=== PATIENT | male | born 1960 | race Caucasian/White ===

== ENCOUNTER 2018-09-02 18:41 | Inpatient (IN) ==
[2018-09-02 19:16] LABS: Basophils # 0.1 10*3/uL (0.0-0.2); Basophils % 0.8 % (0.0-0.8); Eosinophils # 0.2 10*3/uL (0.0-0.87); Eosinophils % 1.3 % (0.00-10.9); Hematocrit 41.8 VOL% (42.0-52.0); Hemoglobin 13.4 GM/DL (14.0-18.0); Immature Granulocytes % 0.4 %; Immature Granulocytes Absolute 0.05 #; Lymphocytes # 1.2 10*3/uL (1.4-4.0); Lymphocytes % 9.1 % (21.2-54.2); Mean Corpuscular HGB Conc 32.1 GM/DL (32-36); Mean Corpuscular Hemoglobin 28 PG (27-34); Mean Corpuscular Volume 86.5 FL (87-102); Mean Platelet Volume 9.8 FL (9.6-12.0); Monocytes # 0.8 10*3/uL (0.11-0.8); Monocytes % 6.7 % (1.7-12.7); Neutrophils # 10.3 10*3/uL (1.4-7.4); Neutrophils % 81.7 % (38.7-73.9); Platelet Count 321 T/CUMM (130-400); Red Blood Count 4.83 MC/CUMM (3.8-5.5); Red Cell Distribution Width 14.9 % (9.3-17.3); White Blood Count 12.6 T/CUMM (4-12)
[2018-09-02 19:25] LABS: INR 1.2; PT Patient Result 12.6 SECS
[2018-09-02 19:40] LABS: Alanine Aminotransferase 22 U/L (16-61); Albumin 3.1 G/DL (3.4-5.0); Alkaline Phosphatase 208 U/L (45-117); Aspartate Amino Transferase 24 U/L (0-37); Blood Urea Nitrogen 30 MG/DL (7-18); Calcium 8.7 MG/DL (8.5-10.1); Glucose 81 MG/DL (74-106); Osmolality,Calculated 268.5 MOS/KG (273-304); Potassium 3.5 MMOL/L (3.5-5.1); Sodium 132 MMOL/L (136-145); Total Protein 7.2 G/DL (6.4-8.3)
[2018-09-02 19:41] LABS: Troponin I 0.052 NG/ML (0.00-0.045)
[2018-09-02] MEDS ORDERED: FUROSEMIDE 40 MG/4 ML VIAL IV STA (19:44)
[2018-09-02] MEDS ORDERED: MORPHINE 4 MG/1 ML VIAL IV STA (21:25)
[2018-09-02] MEDS ORDERED: MORPHINE 4 MG/1 ML VIAL ONE (21:27)
[2018-09-02] MEDS ORDERED: ZALEPLON 5 MG CAPSULE PO PRN (22:02)
[2018-09-02] MEDS ORDERED: ALBUTEROL 2.5 MG/3 ML NEB RESP TX PRN (22:02)
[2018-09-02] MEDS ORDERED: ONDANSETRON 4 MG/2 ML VIAL IV PRN (22:02)
[2018-09-02] MEDS ORDERED: ACETAMINOPHEN 325 MG TABLET PO PRN (22:02)
[2018-09-02] MEDS ORDERED: MORPHINE 4 MG/1 ML VIAL IV PRN (22:02)
[2018-09-02] MEDS ORDERED: DOCUSATE SODIUM 100 MG CAPSULE PO PRN (22:02)
[2018-09-02] MEDS ORDERED: ALBUTEROL/IPRATROPIUM 3 ML NEB RESP TX PRN (22:02)
[2018-09-02 23:49] LABS: Apearance,Urine CLEAR (Clear); Bilirubin,Urine Negative (Negative); Blood, Urine Negative (Negative); Glucose,Urine (UA) Negative (Negative); Hyaline Casts,Urine 1 /LPF (0-3); Ketones,Urine Negative (Negative); Nitrite,Urine Negative (Negative); Protein,Urine Negative; RBC,Urine 1 /HPF (0-4); Urine Color Yellow (Yellow); Urine Specific Gravity 1.008 (1.001-1.035); Urine Urobilinogen < 2.0 EU/DL (0.2-1.0)
[2018-09-03] MEDS ORDERED: LORazepam 2 MG/1 ML VIAL ONE (00:31)
[2018-09-03] MEDS: ENOXAPARIN 40 MG/0.4 ML SYRINGE SUBCUT SCH (00:35)
[2018-09-03 04:46] LABS: Basophils # 0.1 10*3/uL (0.0-0.2); Basophils % 0.9 % (0.0-0.8); Eosinophils # 0.3 10*3/uL (0.0-0.87); Hematocrit 40.6 VOL% (42.0-52.0); Immature Granulocytes % 0.3 %; Immature Granulocytes Absolute 0.03 #; Lymphocytes # 1.2 10*3/uL (1.4-4.0); Lymphocytes % 13.2 % (21.2-54.2); Mean Corpuscular Hemoglobin 28 PG (27-34); Mean Platelet Volume 9.6 FL (9.6-12.0); Monocytes # 0.8 10*3/uL (0.11-0.8); Monocytes % 9.1 % (1.7-12.7); Neutrophils # 6.5 10*3/uL (1.4-7.4); Neutrophils % 73.5 % (38.7-73.9); Platelet Count 264 T/CUMM (130-400); Red Blood Count 4.72 MC/CUMM (3.8-5.5); White Blood Count 8.8 T/CUMM (4-12)
[2018-09-03 05:04] LABS: Calcium 8.2 MG/DL (8.5-10.1); Osmolality,Calculated 275.1 MOS/KG (273-304); Potassium 2.8 MMOL/L (3.5-5.1); Risk Ratio 2.58; VLDL CHOLESTEROL 12.8 MG/DL
[2018-09-03] MEDS: POTASSIUM CHLORIDE 20 MEQ TABLET PO SCH ×4 (08:05→18:49)
[2018-09-03] MEDS: FUROSEMIDE 40 MG/4 ML VIAL IV SCH ×2 (08:05→15:05)
[2018-09-03] MEDS ORDERED: ATORVASTATIN 10 MG TABLET PO SCH (09:00)
[2018-09-03] MEDS ORDERED: CARVEDILOL 6.25 MG TABLET PO SCH (09:00)
[2018-09-03] MEDS: ASPIRIN EC 81 MG TABLET PO SCH (10:07)
[2018-09-03] MEDS ORDERED: PNEUMOCOCCAL VACCINE (23 VALENT) 0.5 ML VIAL IM ONE (11:37)
[2018-09-03] MEDS ORDERED: INFLUENZA VIRUS VACCINE 0.5 ML SYRINGE IM ONE (11:37)
[2018-09-03] MEDS: NITROGLYCERIN 2% OINT 1 INCH/GM PACK TOP SCH ×2 (11:46→17:44)
[2018-09-03] MEDS: CARVEDILOL 12.5 MG TABLET PO SCH (20:47)
[2018-09-03] MEDS: GABAPENTIN 600 MG TABLET PO SCH (20:48)
[2018-09-04] MEDS: NITROGLYCERIN 2% OINT 1 INCH/GM PACK TOP SCH ×4 (01:06→17:00)
[2018-09-04] MEDS: ENOXAPARIN 40 MG/0.4 ML SYRINGE SUBCUT SCH (01:06)
[2018-09-04 05:54] LABS: Basophils # 0.1 10*3/uL (0.0-0.2); Eosinophils # 0.2 10*3/uL (0.0-0.87); Eosinophils % 3.6 % (0.00-10.9); Hematocrit 40.7 VOL% (42.0-52.0); Hemoglobin 13.2 GM/DL (14.0-18.0); Immature Granulocytes % 0.3 %; Immature Granulocytes Absolute 0.02 #; Lymphocytes % 15.8 % (21.2-54.2); Mean Corpuscular HGB Conc 32.4 GM/DL (32-36); Mean Corpuscular Hemoglobin 28 PG (27-34); Mean Corpuscular Volume 86.4 FL (87-102); Mean Platelet Volume 9.8 FL (9.6-12.0); Monocytes # 0.5 10*3/uL (0.11-0.8); Monocytes % 8.8 % (1.7-12.7); Neutrophils # 4.3 10*3/uL (1.4-7.4); Neutrophils % 70.5 % (38.7-73.9); Platelet Count 240 T/CUMM (130-400); Red Blood Count 4.71 MC/CUMM (3.8-5.5); White Blood Count 6.1 T/CUMM (4-12)
[2018-09-04 06:09] LABS: Calcium 8.5 MG/DL (8.5-10.1); Osmolality,Calculated 281.5 MOS/KG (273-304); Potassium 3.4 MMOL/L (3.5-5.1)
[2018-09-04] MEDS: FUROSEMIDE 40 MG/4 ML VIAL IV SCH ×2 (09:34→16:23)
[2018-09-04] MEDS: CARVEDILOL 12.5 MG TABLET PO SCH ×2 (09:35→21:02)
[2018-09-04] MEDS: POTASSIUM CHLORIDE 20 MEQ TABLET PO SCH (09:35)
[2018-09-04] MEDS: ASPIRIN EC 81 MG TABLET PO SCH (09:45)
[2018-09-04] MEDS: GABAPENTIN 600 MG TABLET PO SCH (21:02)
[2018-09-05] MEDS: NITROGLYCERIN 2% OINT 1 INCH/GM PACK TOP SCH ×2 (01:49→06:37)
[2018-09-05] MEDS: ENOXAPARIN 40 MG/0.4 ML SYRINGE SUBCUT SCH (01:50)
[2018-09-05 04:28] LABS: Basophils # 0.1 10*3/uL (0.0-0.2); Eosinophils # 0.4 10*3/uL (0.0-0.87); Eosinophils % 8.2 % (0.00-10.9); Hemoglobin 12.9 GM/DL (14.0-18.0); Immature Granulocytes % 0.4 %; Immature Granulocytes Absolute 0.02 #; Lymphocytes # 0.8 10*3/uL (1.4-4.0); Lymphocytes % 16.9 % (21.2-54.2); Mean Corpuscular HGB Conc 31.5 GM/DL (32-36); Mean Corpuscular Hemoglobin 28 PG (27-34); Mean Corpuscular Volume 88.9 FL (87-102); Mean Platelet Volume 10.2 FL (9.6-12.0); Monocytes # 0.6 10*3/uL (0.11-0.8); Monocytes % 11.8 % (1.7-12.7); Neutrophils % 61.7 % (38.7-73.9); Platelet Count 206 T/CUMM (130-400); Red Blood Count 4.61 MC/CUMM (3.8-5.5); Red Cell Distribution Width 15.1 % (9.3-17.3); White Blood Count 4.9 T/CUMM (4-12)
[2018-09-05 05:02] LABS: Calcium 8.3 MG/DL (8.5-10.1); Osmolality,Calculated 286.1 MOS/KG (273-304); Potassium 3.3 MMOL/L (3.5-5.1)
[2018-09-05] MEDS ORDERED: POTASSIUM CHLORIDE 20 MEQ TABLET PO ONE ×2 (07:08→11:00)
[2018-09-05] MEDS: ASPIRIN EC 81 MG TABLET PO SCH (08:36)
[2018-09-05] MEDS: CARVEDILOL 12.5 MG TABLET PO SCH ×3 (08:37→22:31)
[2018-09-05] MEDS: LOSARTAN 25 MG TABLET PO SCH (08:37)
[2018-09-05] MEDS: FUROSEMIDE 40 MG TABLET PO SCH (08:37)
[2018-09-05] MEDS: SPIRONOLACTONE 25 MG TABLET PO SCH (08:37)
[2018-09-05] MEDS: MAGNESIUM OXIDE 400 MG TABLET PO SCH ×2 (08:37→22:31)
[2018-09-05] MEDS: POTASSIUM CHLORIDE 20 MEQ TABLET PO SCH (10:06)
[2018-09-05] MEDS: clonazePAM 0.5 MG TABLET PO PRN ×2 (10:30→19:50)
[2018-09-05] MEDS: GABAPENTIN 600 MG TABLET PO SCH (22:31)
[2018-09-05] MEDS ORDERED: SODIUM CHLORIDE 0.9% 1,000 ML IV SCH (23:55)
[2018-09-06 05:16] LABS: Basophils # 0.1 10*3/uL (0.0-0.2); Basophils % 1.5 % (0.0-0.8); Eosinophils # 0.4 10*3/uL (0.0-0.87); Eosinophils % 7.3 % (0.00-10.9); Hematocrit 41.2 VOL% (42.0-52.0); Immature Granulocytes % 0.4 %; Immature Granulocytes Absolute 0.02 #; Lymphocytes # 1.2 10*3/uL (1.4-4.0); Lymphocytes % 22.3 % (21.2-54.2); Mean Corpuscular HGB Conc 31.6 GM/DL (32-36); Mean Corpuscular Hemoglobin 28 PG (27-34); Mean Corpuscular Volume 88.8 FL (87-102); Mean Platelet Volume 10.6 FL (9.6-12.0); Monocytes # 0.5 10*3/uL (0.11-0.8); Neutrophils # 3.2 10*3/uL (1.4-7.4); Neutrophils % 59.5 % (38.7-73.9); Platelet Count 215 T/CUMM (130-400); Red Blood Count 4.64 MC/CUMM (3.8-5.5); Red Cell Distribution Width 15.4 % (9.3-17.3); White Blood Count 5.3 T/CUMM (4-12)
[2018-09-06 05:32] LABS: Calcium 8.2 MG/DL (8.5-10.1); Osmolality,Calculated 283.3 MOS/KG (273-304); Potassium 3.7 MMOL/L (3.5-5.1)
[2018-09-06 05:38] LABS: INR 1.1; PT Patient Result 12.1 SECS
[2018-09-06] MEDS ORDERED: DIAZEPAM 5 MG TABLET PO ONE (06:30)
[2018-09-06] MEDS ORDERED: diphenhydrAMINE CAP 25 MG CAPSULE PO ONE (06:30)
[2018-09-06] MEDS ORDERED: HEPARIN/NACL 0.9% 2 UNITS/ML 1,000 ML IV ONE (06:50)
[2018-09-06] MEDS ORDERED: LIDOCAINE 1% 20 ML VIAL ONE (06:50)
[2018-09-06] MEDS: ENOXAPARIN 40 MG/0.4 ML SYRINGE SUBCUT SCH ×2 (06:53→21:56)
[2018-09-06] MEDS: LOSARTAN 25 MG TABLET PO SCH (06:53)
[2018-09-06] MEDS: ASPIRIN EC 81 MG TABLET PO SCH (06:53)
[2018-09-06] MEDS: CARVEDILOL 12.5 MG TABLET PO SCH ×2 (06:53→21:16)
[2018-09-06] MEDS ORDERED: NITROGLYCERIN DRIP 50 MG/250 ML BOTTLE IV ONE (07:07)
[2018-09-06] MEDS ORDERED: VERAPAMIL 5 MG/2 ML VIAL ONE (07:07)
[2018-09-06] MEDS ORDERED: fentaNYL 100 MCG/2 ML VIAL ONE (07:13)
[2018-09-06] MEDS ORDERED: MIDAZOLAM 2 MG/2 ML VIAL ONE (07:13)
[2018-09-06] MEDS ORDERED: ENOXAPARIN 60 MG/0.6 ML SYRINGE ONE (07:15)
[2018-09-06] MEDS ORDERED: DEXTROSE 50% 25 GM/50 ML VIAL IV PRN (07:31)
[2018-09-06] MEDS ORDERED: GLUCAGON 1 MG VIAL IM PRN (07:31)
[2018-09-06] MEDS: clonazePAM 0.5 MG TABLET PO PRN ×2 (10:51→21:29)
[2018-09-06] MEDS: POTASSIUM CHLORIDE 20 MEQ TABLET PO SCH (10:52)
[2018-09-06] MEDS: FUROSEMIDE 40 MG TABLET PO SCH (10:52)
[2018-09-06] MEDS: SPIRONOLACTONE 25 MG TABLET PO SCH (10:52)
[2018-09-06] MEDS: MAGNESIUM OXIDE 400 MG TABLET PO SCH ×2 (10:52→21:16)
[2018-09-06] MEDS ORDERED: INSULIN REGULAR 100 UNIT/ML SUBCUT SCH (11:30)
[2018-09-06] MEDS ORDERED: guaiFENesin 200 MG/10 ML UDCUP PO PRN (11:44)
[2018-09-06] MEDS ORDERED: SODIUM CHLORIDE 0.9% 1,000 ML IV SCH (14:00)
[2018-09-06] MEDS: CHLORHEXIDINE 4% SOLN 118 ML BOTTLE TOP SCH ×2 (15:42→21:16)
[2018-09-06] MEDS ORDERED: ATORVASTATIN 40 MG TABLET PO SCH (21:00)
[2018-09-06] MEDS: CHLORHEXIDINE 0.12% ORAL RINSE 60 ML BOTTLE SWISH/SPIT SCH (21:17)
[2018-09-06] MEDS: GABAPENTIN 600 MG TABLET PO SCH (21:55)
[2018-09-07] MEDS ORDERED: CEFUROXIME INJ 1,500 MG in SYRINGE 1 EACH IV ONE (03:00)
[2018-09-07] MEDS ORDERED: VANCOMYCIN INJ 1,500 MG in SODIUM CHLORIDE 0.9% 500 ML IV ONE (03:00)
[2018-09-07] MEDS ORDERED: FAMOTIDINE 20 MG TABLET PO ONE (05:00)
[2018-09-07] MEDS ORDERED: PAPAVERINE 60 MG/2 ML VIAL ONE (05:21)
[2018-09-07] MEDS ORDERED: VANCOMYCIN 1,000 MG VIAL ONE ×4 (05:21→08:23)
[2018-09-07] MEDS ORDERED: TISSUE ADHESIVE 1 EACH APPLICATOR TOP ONE (05:22)
[2018-09-07] MEDS ORDERED: SUFentanil 250 MCG/5 ML AMP ONE (05:23)
[2018-09-07] MEDS ORDERED: MIDAZOLAM 10 MG/2 ML VIAL ONE (05:23)
[2018-09-07] MEDS ORDERED: HEPARIN/NACL 0.9% 2 UNITS/ML 500 ML IV ONE (05:23)
[2018-09-07 05:35] LABS: Osmolality,Calculated 281.4 MOS/KG (273-304); Potassium 5.1 MMOL/L (3.5-5.1)
[2018-09-07] MEDS ORDERED: DIAZEPAM 5 MG TABLET PO ONE (05:54)
[2018-09-07 06:09] LABS: Basophils # 0.1 10*3/uL (0.0-0.2); Basophils % 1.2 % (0.0-0.8); Eosinophils # 0.5 10*3/uL (0.0-0.87); Eosinophils % 5.9 % (0.00-10.9); Hematocrit 46.3 VOL% (42.0-52.0); Immature Granulocytes % 0.3 %; Immature Granulocytes Absolute 0.02 #; Lymphocytes # 1.2 10*3/uL (1.4-4.0); Mean Corpuscular HGB Conc 30.5 GM/DL (32-36); Mean Corpuscular Hemoglobin 28 PG (27-34); Mean Platelet Volume 10.8 FL (9.6-12.0); Monocytes # 0.7 10*3/uL (0.11-0.8); Monocytes % 9.1 % (1.7-12.7); Neutrophils # 5.3 10*3/uL (1.4-7.4); Neutrophils % 67.5 % (38.7-73.9); Platelet Count 247 T/CUMM (130-400); Red Blood Count 5.09 MC/CUMM (3.8-5.5); Red Cell Distribution Width 15.8 % (9.3-17.3); White Blood Count 7.8 T/CUMM (4-12)
[2018-09-07 06:13] LABS: Hemoglobin 14.1 GM/DL (14.0-18.0)
[2018-09-07] MEDS ORDERED: VANCOMYCIN 500 MG VIAL ONE (07:56)
[2018-09-07] MEDS ORDERED: LIDOCAINE 100 MG/5 ML SYRINGE ONE (08:06)
[2018-09-07] MEDS ORDERED: ALBUMIN 5% 12.5 GM/250 ML VIAL IV ONE (08:06)
[2018-09-07] MEDS ORDERED: ATROPINE 1 MG/10 ML SYRINGE ONE (08:06)
[2018-09-07] MEDS ORDERED: EPINEPHrine 1 MG/10 ML SYRINGE ONE ×2 (08:06→15:39)
[2018-09-07] MEDS ORDERED: POTASSIUM CHLORIDE RIDER 100 ML IV ONE (08:07)
[2018-09-07 08:09] LABS: Apearance,Urine CLEAR (Clear); Bilirubin,Urine Negative (Negative); Blood, Urine Small mg/dL (Negative); Glucose,Urine (UA) Negative (Negative); Ketones,Urine Negative (Negative); Mucus,Urine Occasional /LPF (Occasional); Nitrite,Urine Negative (Negative); Protein,Urine 30 MG/DL; RBC,Urine 1 /HPF (0-4); Urine Color Amber (Yellow); Urine Specific Gravity 1.026 (1.001-1.035); WBC,Urine <1 /HPF (0-6)
[2018-09-07 08:13] LABS: ABG Base Excess -3.2 MMOL/L (-2.5-2.5); ABG HCO3 21.7 MMOL/L (20-26); ABG Oxygen Saturation 98.1 % (95-100); ABG PCO2 42.5 MM HG (35-48); ABG PH 7.334 (7.35-7.45); ABG TCO2 19.9 MMOL/L (23-27); Glucose Heart Surgery 106 MG/DL (74-106); Hematocrit Heart Surgery 41.1 PERCENT (42-52); Hemoglobin Heart Surgery 13.4 G/DL (14.0-18.0); Ionized Calcium Arterial 1.19 MMOL/L (1.21-1.46); PCO2 Patient Temp Arterial 42.5 MMHG; PH Patient Temp Arterial 7.334; Patient Temperature 37 CELCIUS; Potassium Heart/CVR 4.4 MMOL/L (3.5-5.1); Sodium Heart/CVR 138 MMOL/L (135-145)
[2018-09-07] MEDS: ASPIRIN EC 81 MG TABLET PO SCH (09:05)
[2018-09-07] MEDS: SPIRONOLACTONE 25 MG TABLET PO SCH (09:05)
[2018-09-07] MEDS: LOSARTAN 25 MG TABLET PO SCH (09:05)
[2018-09-07] MEDS: CHLORHEXIDINE 4% SOLN 118 ML BOTTLE TOP SCH (09:05)
[2018-09-07] MEDS: POTASSIUM CHLORIDE 20 MEQ TABLET PO SCH (09:05)
[2018-09-07] MEDS: FUROSEMIDE 40 MG TABLET PO SCH (09:05)
[2018-09-07] MEDS: CARVEDILOL 12.5 MG TABLET PO SCH (09:05)
[2018-09-07] MEDS: CHLORHEXIDINE 0.12% ORAL RINSE 60 ML BOTTLE SWISH/SPIT SCH (09:06)
[2018-09-07] MEDS: MAGNESIUM OXIDE 400 MG TABLET PO SCH (09:06)
[2018-09-07 10:13] LABS: Hemoglobin Heart Surgery 10.5 G/DL (14.0-18.0); PCO2 Patient Temp Venous 43.3 MM HG; PH Patient Temp Venous 7.325; Potassium Heart/CVR 5.7 MMOL/L (3.5-5.1); VBG Base Excess -3.9 MEQ/L (0-4); VBG HCO3 22.3 MEQ/L (24-28); VBG Oxygen Saturation 79.7 %; VBG PCO2 45.2 MMHG (41-51); VBG PH 7.311; VBG PO2 52.5 MMHG (17-40)
[2018-09-07 10:58] LABS: Hematocrit Heart Surgery 26.1 PERCENT (42-52); Hemoglobin Heart Surgery 8.4 G/DL (14.0-18.0); PCO2 Patient Temp Venous 35.3 MM HG; PH Patient Temp Venous 7.442; PO2 Patient Temp Venous 42.9 MM HG; Potassium Heart/CVR 5.3 MMOL/L (3.5-5.1); VBG Base Excess 0.4 MEQ/L (0-4); VBG HCO3 24.6 MEQ/L (24-28); VBG Oxygen Saturation 85.5 %; VBG PCO2 40.8 MMHG (41-51); VBG PH 7.399; VBG PO2 52.6 MMHG (17-40)
[2018-09-07 11:16] LABS: Hemoglobin Heart Surgery 11.3 G/DL (14.0-18.0); PCO2 Patient Temp Venous 30.4 MM HG; PH Patient Temp Venous 7.491; PO2 Patient Temp Venous 48.3 MM HG; Potassium Heart/CVR 5.4 MMOL/L (3.5-5.1); VBG Base Excess 0.1 MEQ/L (0-4); VBG HCO3 22.7 MEQ/L (24-28); VBG Oxygen Saturation 83.1 %; VBG PCO2 30.4 MMHG (41-51); VBG PH 7.491; VBG PO2 48.3 MMHG (17-40)
[2018-09-07 11:19] LABS: Hematocrit Heart Surgery 33.3 PERCENT (42-52); Hemoglobin Heart Surgery 10.8 G/DL (14.0-18.0); PCO2 Patient Temp Venous 30.2 MM HG; PH Patient Temp Venous 7.483; PO2 Patient Temp Venous 34.2 MM HG; VBG Base Excess -0.1 MEQ/L (0-4); VBG Oxygen Saturation 76.4 %; VBG PH 7.438; VBG PO2 42.2 MMHG (17-40)
[2018-09-07 11:44] LABS: Hematocrit Heart Surgery 32.3 PERCENT (42-52); Hemoglobin Heart Surgery 10.4 G/DL (14.0-18.0); PCO2 Patient Temp Venous 40.1 MM HG; PH Patient Temp Venous 7.398; PO2 Patient Temp Venous 47.8 MM HG; VBG HCO3 24.1 MEQ/L (24-28); VBG Oxygen Saturation 80.5 %; VBG PCO2 40.1 MMHG (41-51); VBG PH 7.398; VBG PO2 47.8 MMHG (17-40)
[2018-09-07] MEDS ORDERED: THROMBIN TOPICAL (RECOMBINANT) 5,000 UNIT VIAL TOP ONE (12:06)
[2018-09-07] MEDS ORDERED: SODIUM BICARBONATE 50 MEQ/50 ML SYRINGE IV ONE ×3 (12:17→16:47)
[2018-09-07] MEDS ORDERED: MANNITOL 100 GM/500 ML BAG IV ONE (12:17)
[2018-09-07] MEDS ORDERED: DEXTROSE 5% KCL 20 MEQ 20 MEQ/1,000 ML BAG IV ONE (12:17)
[2018-09-07] MEDS ORDERED: ALBUMIN 25% 25 GM/100 ML VIAL IV ONE (12:18)
[2018-09-07] MEDS ORDERED: PROTAMINE SULFATE 250 MG/25 ML VIAL IV ONE (12:18)
[2018-09-07] MEDS ORDERED: PROTAMINE SULFATE 50 MG/5 ML VIAL IV ONE (12:18)
[2018-09-07] MEDS ORDERED: HEPARIN 10,000 UNIT/10 ML VIAL ONE (12:18)
[2018-09-07] MEDS ORDERED: FUROSEMIDE 20 MG/2 ML VIAL ONE ×2 (12:18→15:40)
[2018-09-07] MEDS ORDERED: methylPREDNISolone SOD SUC 1,000 MG/8 ML VIAL ONE (12:18)
[2018-09-07] MEDS ORDERED: MAGNESIUM SULFATE 10 GM/20 ML VIAL IV ONE (12:18)
[2018-09-07 12:38] LABS: ABG Base Excess -7.6 MMOL/L (-2.5-2.5); ABG HCO3 19.7 MMOL/L (20-26); ABG Oxygen Saturation 84.8 % (95-100); ABG PCO2 47.3 MM HG (35-48); ABG PH 7.238 (7.35-7.45); ABG PO2 62.3 MM HG (80-95); ABG TCO2 21.2 MMOL/L (23-27); Glucose Heart Surgery 177 MG/DL (74-106); Hemoglobin Heart Surgery 12.5 G/DL (14.0-18.0); PCO2 Patient Temp Arterial 47.3 MMHG; PH Patient Temp Arterial 7.238; PO2 Patient Temp Arterial 62.3 MM HG; Patient Temperature 37 CELCIUS; Potassium Heart/CVR 4.1 MMOL/L (3.5-5.1); Sodium Heart/CVR 137 MMOL/L (135-145)
[2018-09-07 13:11] LABS: ABG Base Excess -4.7 MMOL/L (-2.5-2.5); ABG HCO3 20.1 MMOL/L (20-26); ABG Oxygen Saturation 73.9 % (95-100); ABG PCO2 50.1 MM HG (35-48); ABG PH 7.266 (7.35-7.45); ABG PO2 48.7 MM HG (80-95); ABG TCO2 20.5 MMOL/L (23-27); Glucose Heart Surgery 197 MG/DL (74-106); Hematocrit Heart Surgery 39.3 PERCENT (42-52); Hemoglobin Heart Surgery 12.8 G/DL (14.0-18.0); Ionized Calcium Arterial 1.17 MMOL/L (1.21-1.46); PCO2 Patient Temp Arterial 50.1 MMHG; PH Patient Temp Arterial 7.266; PO2 Patient Temp Arterial 48.7 MM HG; Patient Temperature 37 CELCIUS; Potassium Heart/CVR 4.1 MMOL/L (3.5-5.1); Sodium Heart/CVR 139 MMOL/L (135-145)
[2018-09-07 13:30] LABS: ABG HCO3 23.2 MMOL/L (20-26); ABG Oxygen Saturation 78.7 % (95-100); ABG PCO2 41.1 MM HG (35-48); ABG PH 7.377 (7.35-7.45); ABG PO2 47.5 MM HG (80-95); ABG TCO2 21.3 MMOL/L (23-27); Glucose Heart Surgery 186 MG/DL (74-106); Hematocrit Heart Surgery 39.6 PERCENT (42-52); Hemoglobin Heart Surgery 12.9 G/DL (14.0-18.0); Ionized Calcium Arterial 1.27 MMOL/L (1.21-1.46); PCO2 Patient Temp Arterial 41.1 MMHG; PH Patient Temp Arterial 7.377; PO2 Patient Temp Arterial 47.5 MM HG; Patient Temperature 37 CELCIUS; Potassium Heart/CVR 3.6 MMOL/L (3.5-5.1); Sodium Heart/CVR 141 MMOL/L (135-145)
[2018-09-07] MEDS ORDERED: ALBUTEROL/IPRATROPIUM 3 ML NEB RESP TX ONE ×2 (13:40→14:53)
[2018-09-07] MEDS ORDERED: EPINEPHrine 1 MG/ML VIAL ONE ×2 (13:48→15:39)
[2018-09-07] MEDS ORDERED: DOBUTamine 500 MG/250 ML PREMIX IV ONE (13:48)
[2018-09-07] MEDS ORDERED: methylPREDNISolone SOD SUC 125 MG/2 ML VIAL ONE ×2 (14:28→14:35)
[2018-09-07] MEDS ORDERED: EPINEPHrine 1 MG/10 ML SYRINGE IV ONE ×2 (14:51→16:47)
[2018-09-07] MEDS ORDERED: CALCIUM CHLORIDE 1,000 MG/10 ML SYRINGE IV ONE (14:51)
[2018-09-07] MEDS ORDERED: DOBUTamine 500 MG/250 ML PREMIX IV PRN (14:53)
[2018-09-07] MEDS ORDERED: SEVOFLURANE 1 UNIT/15 MINUTE INH ONE (15:39)
[2018-09-07] MEDS ORDERED: CALCIUM CHLORIDE 1,000 MG/10 ML VIAL IV ONE (15:39)
[2018-09-07] MEDS ORDERED: PHENYLEPHRINE DRIP 20 MG/250 ML PREMIX IV ONE (15:39)
[2018-09-07] MEDS ORDERED: MIDAZOLAM 2 MG/2 ML VIAL ONE (15:40)
[2018-09-07] MEDS ORDERED: LACTATED RINGERS 1,000 ML IV ONE (15:41)
[2018-09-07] MEDS ORDERED: AMINOCAPROIC ACID 5,000 MG/20 ML VIAL ONE (15:41)
[2018-09-07] MEDS ORDERED: VECURONIUM 10 MG VIAL IV ONE (15:41)
[2018-09-07] MEDS ORDERED: ETOMIDATE 40 MG/20 ML VIAL IV ONE (15:41)
[2018-09-07] MEDS ORDERED: PHENYLEPHRINE 1 MG/10 ML SYRINGE IV ONE (15:41)
[2018-09-07] MEDS ORDERED: SODIUM CHLORIDE 0.9% 1,000 ML IV ONE (15:41)
[2018-09-07] MEDS ORDERED: ALBUMIN 5% 12.5 GM in PREMIX 1 EACH IV ONE (16:05)
[2018-09-07 18:13] VITALS: BP 35/12
== END 2018-09-07 14:40 | disposition expired | DRG 166 ==
LOC: N.ED 18:41 → N.EDINP 21:45 → SUATTDRO 21:45 → N.EDINP 09-03 10:15 → N.5E 09-03 11:08 → N.CVR 09-07 08:16
PROVIDERS: ADMIT Internal Medicine; ATTEND Internal Medicine